=== PATIENT | male | born 1945 | race Caucasian/White ===

== ENCOUNTER 2021-09-20 11:19 | Inpatient (IN) | payer MEDICARE ==
[~2021-09-20] VITALS: Ht 195.6 cm; Wt 95.3 kg
[2021-09-20] MEDS ORDERED: ATOR40TA PO (11:38)
[2021-09-20] MEDS ORDERED: LOSA1TAB36 PO (11:38)
[2021-09-20] MEDS ORDERED: EZET10TA15 PO (11:38)
[2021-09-20] MEDS ORDERED: TAMS-3 PO (11:38)
[2021-09-20] MEDS ORDERED: FINA5TAB3 PO (11:38)
[2021-09-20] MEDS ORDERED: ATOR10TA PO (11:38)
[2021-09-20] MEDS ORDERED: BISACODYL 10 MG SUPP.RECT RC ONE ×2 (12:15→12:24)
[2021-09-20] MEDS ORDERED: LIDOCAINE 4% TOPICAL 50 ML BOTTLE TP ONE (12:15)
[2021-09-20] MEDS ORDERED: LIDOCAINE 4% TOPICAL 50 ML BOTTLE ONE (12:29)
[2021-09-20] MEDS ORDERED: IV NORMAL SALINE 500 ML BAG IV ONE (13:30)
[2021-09-20 13:37] LABS: HEMATOCRIT 36.5 % (36.7-47.1); MEAN CORPUSCULAR HEMOGLOBIN 30.7 uug (23.8-33.4); PLATELET COUNT (AUTO) 280 K/uL (152-348)
[2021-09-20] MEDS ORDERED: DALF10TA2 PO (13:38)
[2021-09-20 13:44] LABS: CREATININE 1.3 mg/dL (0.6-1.3)
[2021-09-20 13:50] LABS: BILIRUBIN,DIRECT 0.1 mg/dL (0.0-0.2); BILIRUBIN,TOTAL 0.9 mg/dL (0.2-1.0); TOTAL PROTEIN, SERUM 7.1 g/dL (6.4-8.2)
[2021-09-20] MEDS ORDERED: SWABABLE VALVE TRANSFER SET EA MC ONE (14:04)
[2021-09-20] MEDS ORDERED: IV NORMAL SALINE 250 ML IV ONE (14:05)
[2021-09-20] MEDS ORDERED: IOHEXOL 300MG/ML 100 ML INFUS..BTL ONE (14:05)
[2021-09-20] MEDS ORDERED: MINERAL OIL FLEET ENEMA 133 ML BOTTLE RC ONE ×4 (14:15→16:46)
[2021-09-20 16:28] LABS: *BILIRUBIN,URIN NEGATIVE (NEGATIVE); *BLOOD, URINE NEGATIVE (NEGATIVE); *CLARITY,URINE CLEAR (CLEAR); *COLOR,URINE YELLOW (YELLOW); *KETONES,URINE NEGATIVE (NEGATIVE); LEUKOCYTE ESTERASE ,URINE NEGATIVE (NEGATIVE); NITRITE, URINE NEGATIVE (NEGATIVE); UGLUCOSE NEGATIVE (NEGATIVE)
[2021-09-20] MEDS ORDERED: MAGNESIUM CITRATE 296 ML BOTTLE PO ONE (18:00)
[2021-09-20] MEDS ORDERED: MAGNESIUM CITRATE 296 ML BOTTLE ONE (18:34)
[2021-09-20] MEDS ORDERED: ONDANSETRON 4 MG/2 ML VIAL IV PRN (19:00)
[2021-09-20] MEDS ORDERED: ACETAMINOPHEN 325 MG TABLET PO PRN (19:00)
[2021-09-20] MEDS ORDERED: FLEET ENEMA 133 ML BOTTLE RC PRN (19:00)
[2021-09-20] MEDS ORDERED: MAGNESIUM HYDROXIDE 30 ML LIQUID UDC PO PRN (19:00)
[2021-09-20] MEDS ORDERED: Z GUARD REMEDY PASTE 57 GM TUBE TOP PRN (19:00)
[2021-09-20] MEDS ORDERED: LACTULOSE 20 G/30 ML LIQUID UDC PO PRN (19:00)
--- NOTE | 2021-09-20 19:25 | NUR ---
Report received from day shift nurse. Pt called to use bsc, while on commode pt became weak pt was assisted back to [facility] with two person assist.
[2021-09-20] MEDS ORDERED: ONDANSETRON HCL 4 MG TABLET ONE (20:03)
[2021-09-20] MEDS ORDERED: HYDROMORPHONE 2 MG/1 ML DISP.SYRIN ONE (20:03)
--- NOTE | 2021-09-20 20:07 | NUR ---
report called to Nighat BAH
--- NOTE | 2021-09-20 21:04 | NUR ---
[facility]. Nighat RN at bedside to receive pt.
--- NOTE | 2021-09-20 21:20 | NUR ---
ADMITTED THIS 75 Y.O. MALE FROM ER,VIA GURNEY,ACCOMPANIED BY ER NURSES.ALERT ,ORIENTED X4, WENT TO ER FOR CONSTIPATION, NO BM FOR 4 DAYS, HAD BOWEL WORK UP IN ER,PT. GOT UP AND WANTING TO USE BATHROOM AND HAD SYNCOPAL EPISODE AND BRADYCARDIA,THEN THAT IS THE REASON FOR ADMISSION.CAME TO THE FLOOR IN A VERY BAD MOOD.IV SITE ON RIGHT AC PATENT AND INTACT
--- NOTE | 2021-09-20 22:00 | NUR ---
PT WAS UNCOOPERATIVE, REQUESTING DIFFERENT STUFF SOON HE CAME FROM ER, DR.SANTA LOMAS NOTIFIED OF ADMISSION,RELAYED MESSAGES REGARDING WHAT MEDICATIONS PT WANTS. ACTIVE LISTENING PROVIDED,.
[2021-09-20] MEDS ORDERED: PANTOPRAZOLE SODIUM 40 MG TABLET.DR PO ONE (22:39)
[2021-09-20] MEDS: TAMSULOSIN HCL 0.4 MG CAP.SR.24H PO SCH (22:57)
[2021-09-20] MEDS: DOCUSATE SODIUM 100 MG CAPSULE PO SCH (23:04)
--- NOTE | 2021-09-20 23:50 | NUR ---
PTC/O NAUSEA,THEN REQUESTING ANTACID BEREKET,AFTEROBTAINING ORDERS FOR ANTACID ,WANTSMD BE PAGED AGAIN REGARDING USE OF CPAP MACHINE.THIS PT IS VERY STUBBORN AND NON COMPIAT.NURSE TOOK HIS HOME MEDS AD WILL BE GIVEN TO PHARMACY.REFUSED TO BE ASSESSED AT THIS TIME, ONLY INTERESTED TO HAVE A GOOD BM ,GET CLEANED AND SLEEP GOOD. ON TELE SR,68. SLEPT AT LONG INTERVALS.NO ACUTE DISTRESS NOTED.
[2021-09-21] VITALS: BP 123/40
--- NOTE | 2021-09-21 04:47 | NUR ---
PATIENT PLACED ON CPAP MACHINE WITH FULL MASK LARGE, WITH CPAP 5CM, HE SAID HE WEARS ONE AT HOME, PT STABLE ON 3L/M NC WHEN OFF CPAP; FIO2 @ 35% ON CPAP MACHINE .Luz Elena MILES RCP Addendum: 09/21/21 at 0449 by ROXANE MILES RT Amended: Links added.
[2021-09-21] MEDS: PANTOPRAZOLE SODIUM 40 MG TABLET.DR PO SCH ×4 (06:47→21:17)
[2021-09-21 06:53] LABS: HEMATOCRIT 33.1 % (36.7-47.1); MEAN CORPUSCULAR HEMOGLOBIN 30.8 uug (23.8-33.4); MEAN CORPUSCULAR VOLUME 88.2 fL (73.0-96.2); PLATELET COUNT (AUTO) 217 K/uL (152-348)
--- NOTE | 2021-09-21 07:30 | NUR ---
STILL SLEEPING.AM MED OFFERED BUT OPTED TO TAKE IT LATER. REPORT GIVEN TO AM NURSE. ENDORSED IN APPARENTLY FAIR CONDITION.
[2021-09-21 07:32] LABS: CREATININE 1.1 mg/dL (0.6-1.3); MAGNESIUM 3.2 mg/dL (1.8-2.4); PHOSPHOROUS 3.5 mg/dL (2.5-4.9); POTASSIUM 3.8 mmol/L (3.5-5.1)
[2021-09-21] MEDS: TAMSULOSIN HCL 0.4 MG CAP.SR.24H PO SCH (08:16)
--- NOTE | 2021-09-21 10:10 | NUR ---
ASSISTANT PROFESSOR OF ECONOMICS HERE TO DO ECHO ORDERED BUT PATIENT REFUSED AT THIS TIME.
[2021-09-21] MEDS ORDERED: ATOR80TA PO (10:34)
[2021-09-21] MEDS ORDERED: CLON1PAT TD (10:36)
[2021-09-21] MEDS ORDERED: LOSA1TAB39 PO (10:41)
[2021-09-21] MEDS ORDERED: DULA1.5P SQ (10:42)
[2021-09-21] MEDS ORDERED: SPIR25TA PO (10:43)
[2021-09-21] MEDS ORDERED: AMLO-212 PO (10:43)
[2021-09-21] MEDS ORDERED: ESOM40SU PO (10:46)
--- NOTE | 2021-09-21 11:06 | NUR ---
DR PRADO HERE AND AWARE THAT PATIENT IS HAS REFUSED ECHO AND PHYSICAL THERAPY ORDERED AND OTHOSTATIC BLOOD PRESSURE NOT DONE AND HE STATED OKAY WILL SEE PATIENT.
[2021-09-21 12:00] VITALS: BP 112/54
--- NOTE | 2021-09-21 13:04 | NUR ---
PATIENT SEEN AND EXAMINED BY DR LOMAS SHE IS AWARE THAT PATIENT REFUSED PHYSICAL THERAPY AND ECHO ORDERED SHE VERIFIED PATIENT HOME MEDICATIONS AND HIS HOME MEDS THAT WAS DROPPED OFF BY HIS 4 BOTTLES TAKEN FROM THE PATIENT AND SENT TO THE PHARMACY
[2021-09-21] MEDS ORDERED: DALFAMPRIDINE PO ×2 (14:15→14:16)
[2021-09-21 16:02] VITALS: BP 116/55
--- NOTE | 2021-09-21 16:30 | NUR ---
PER THE INTEGRATION SPECIALIST AUDIO VIDEO MECHANIC SOMEONE FROM [facility] WILL CALL RE TRANSFERRING PATIENT TO THAT HOSPITAL SOON SHE HAS AN ASSIGNED BED PATIENTS FABIOLA VICK IS AT THE BEDSIDE AND AWARE. Addendum: 09/21/21 at 1809 by CHERRI HATCH RN ERROR WRONG PATIENT
[2021-09-21] MEDS: DALFAMPRIDINE PO SCH ×2 (17:13→20:17)
--- NOTE | 2021-09-21 18:07 | NUR ---
NO CALLS FROM [facility] AT THIS TIME PER EDEN THE TILE MOLDER HAND THE AMBULANCE IS ON WILL CALL. Addendum: 09/21/21 at 1809 by CHERRI HATCH RN ERROR WRONG PATIENT
--- NOTE | 2021-09-21 18:09 | NUR ---
RESTING IN ROOM PHYSICAL THERAPY WAS FINALLY ABLE TO SEE HIM FOR EVAL WITH ORTHOSTATIC DONE ORDERED DOCUMENTED ON THE LONG FORM
[2021-09-21 18:10] VITALS: BP_SYST 106; BP_SYST 109; BP_SYST 115; BP_DIAS 40; BP_DIAS 45; BP_DIAS 46
[2021-09-21 20:00] VITALS: BP 102/49
[2021-09-21] MEDS: DOCUSATE SODIUM 100 MG CAPSULE PO SCH (20:16)
[2021-09-21] MEDS ORDERED: ATORVASTATIN 40 MG TABLET PO SCH (21:00)
[2021-09-21] MEDS ORDERED: Medication Not On Formulary EA (Atorvastatin Calcium (Lipitor) 80 MG) PO SCH (21:00)
--- NOTE | 2021-09-21 23:50 | NUR ---
Pt placed on CPAP 5, FIO2-30% at this time. RN DON aware and notified. No resp. distress noted. Pt to be monitored throughout the shift. PRN is at bedside. Alarms have been checked and remain audible.
[2021-09-22] VITALS: BP 111/45
[2021-09-22 04:00] VITALS: BP 116/56
[2021-09-22] MEDS ORDERED: PANTOPRAZOLE SODIUM 40 MG TABLET.DR PO SCH (07:00)
[2021-09-22 07:41] LABS: HEMATOCRIT 31.3 % (36.7-47.1); MEAN CORPUSCULAR HEMOGLOBIN 31.3 uug (23.8-33.4); MEAN CORPUSCULAR VOLUME 88.8 fL (73.0-96.2); PLATELET COUNT (AUTO) 189 K/uL (152-348)
--- NOTE | 2021-09-22 07:52 | NUR ---
Slept throughout the night with CPAP. Denies pain or SOB. Able to make needs known. IV site intact. Able to ambulate with FWW. No distress noted. Will endorse to day shift.
[2021-09-22 08:00] VITALS: BP 115/55
--- NOTE | 2021-09-22 08:00 | NUR ---
RECEIVED IN BED AWAKE ALERT AND ORIENTED DENIES PAIN OR DISCOMFORTS AT THIS TIME REMAIN ON TELE WITH NO ECTOPY CALL LIGHTS AND PERSONAL BELONGINGS ARE WITHIN EASY REACH AT THIS TIME WILL CONTINUE TO OBSERVE.
[2021-09-22 08:04] LABS: CREATININE 1.1 mg/dL (0.6-1.3); MAGNESIUM 2.4 mg/dL (1.8-2.4); PHOSPHOROUS 2.8 mg/dL (2.5-4.9); POTASSIUM 3.9 mmol/L (3.5-5.1)
[2021-09-22] MEDS: PANTOPRAZOLE SODIUM 40 MG TABLET.DR PO SCH (08:57)
[2021-09-22] MEDS ORDERED: EZETIMIBE 10 MG TABLET PO SCH (09:00)
[2021-09-22] MEDS ORDERED: AMLODIPINE 5 MG TABLET PO SCH (09:00)
[2021-09-22] MEDS ORDERED: TAMSULOSIN HCL 0.4 MG CAP.SR.24H PO SCH (09:00)
[2021-09-22] MEDS ORDERED: Medication Not On Formulary EA (Losartan/Hydrochlorothiazide (Losartan-Hctz 100-25 Mg Ta PO SCH (09:00)
[2021-09-22] MEDS ORDERED: HYDROCHLOROTHIAZIDE 25 MG TABLET PO SCH (09:00)
[2021-09-22] MEDS ORDERED: LOSARTAN POTASSIUM 50 MG TABLET PO SCH (09:00)
[2021-09-22] MEDS ORDERED: DALFAMPRIDINE PO SCH ×3 (09:00→12:16)
[2021-09-22] MEDS ORDERED: Medication Not On Formulary EA (Esomeprazole Mag Trihydrate (Nexium) 40 MG) PO SCH (09:00)
[2021-09-22] MEDS ORDERED: FINASTERIDE 5 MG TABLET PO SCH (09:00)
--- NOTE | 2021-09-22 11:30 | NUR ---
PATIENT SEEN BY DR PRADO AWARE THAT PATIENTS BLOOD PRESSURE MEDS WERE HELD THIS MORNING AND HE STATED OKAY WILL INSERT PARAMETERS.
[2021-09-22 12:00] VITALS: BP 118/59
[2021-09-22] MEDS: DALFAMPRIDINE PO SCH (12:01)
--- NOTE | 2021-09-22 15:30 | NUR ---
DR LOMAS HERE SEEN PATIENT WITH ORDER TO DISCHARGE HIM HOME TODAY PATIENT AWARE AND STATED THAT HIS CAR IS HERE AT [facility] AWAITING FOR DR LOMAS TO COMPLETE THE DISCHARGE PROCESS.
--- NOTE | 2021-09-22 16:00 | NUR ---
PATIENT DISCHARGED WITH DISCHARGE INSTRUCTIONS AND WAS INSTRUCTED TO FOLLOW UP WITH HIS PRIMARY DOCTOR TO RECHECK LABS/TSH AND TO OBSERVE PARAMETERS WITH HIS BLOOD PRESSURE MEDICATIONS INSTRUCTED BY THE ACTIVITIES COORDINATOR AND HE EXPRESSED UNDERSTANDING PATIENT ASSISTED ON THE W/CHAIR TO HIS CAR PARKED IN FRONT OF [facility] IN SATISFACTORY CONDITION WITH ALL HIS PERSONAL BELONGINGS INCLUDING HIS MEDICATIONS FROM THE [facility].
== END 2021-09-22 16:00 | disposition home or self-care (01) | DRG 392 ==
LOC: ER 11:19 → TELE3 20:11 → MEDSURG3 09-22 12:52
PROVIDERS: ADMIT Student in an Organized Health Care Education/Training Program; ATTEND Student in an Organized Health Care Education/Training Program
DX: K59.00 Constipation, unspecified (principal); E86.0 Dehydration; R55 Syncope and collapse; D72.829 Elevated white blood cell count, unspecified; E78.5 Hyperlipidemia, unspecified; G47.33 Obstructive sleep apnea (adult) (pediatric); I10 Essential (primary) hypertension; N19 Unspecified kidney failure; N40.0 Benign prostatic hyperplasia without lower urinary tract symptoms; Z82.49 Family history of ischemic heart disease and other diseases of the circulatory system; R27.0 Ataxia, unspecified; R94.6 Abnormal results of thyroid function studies; Z91.19 Patient's noncompliance with other medical treatment and regimen; Z20.822 Contact with and (suspected) exposure to COVID-19
CPT/HCPCS: 36415; 70030-TC; 71045; 83605; 83735; 84100; 84443; 85025; 93005; 94660; 97161; A4663; G0378; J1170; J2405; J7030; J7050; Q0162; Q9967

== ENCOUNTER 2022-10-19 01:09 | Emergency (ER) | payer MEDICARE, OTHER ==
[~2022-10-19] VITALS: Ht 165.1 cm; Wt 95.3 kg
[~2022-10-19 01:09] MED LIST: AMLO-212 PO; ATOR80TA PO; CLON1PAT TD; DALFAMPRIDINE PO; DULA1.5P SQ; ESOM40SU PO; EZET10TA15 PO; FINA5TAB3 PO; LOSA1TAB39 PO; SPIR25TA PO; TAMS-3 PO
[2022-10-19] MEDS ORDERED: SODIUM BICARBONATE 4.2 % (NEUT) 5 ML VIAL ONE (01:16)
[2022-10-19] MEDS ORDERED: LIDOCAINE 1%-EPI 1:100,000 20 ML VIAL ONE (01:17)
[2022-10-19] MEDS ORDERED: TDAP DIPH,PERTUSS,TET VAC/PF 0.5 ML DISP.SYRIN IM ONE ×2 (01:20→01:30)
--- NOTE | 2022-10-19 01:25 | NUR ---
PT A/O x 4. NAD noted.
[2022-10-19] MEDS ORDERED: SODIUM BICARBONATE 4.2 % (NEUT) 5 ML VIAL IJ ONE (01:30)
[2022-10-19] MEDS ORDERED: LIDOCAINE 1%-EPI 1:100,000 20 ML VIAL IJ ONE (01:30)
--- NOTE | 2022-10-19 01:30 | NUR ---
PT taken down for CT scan.
--- NOTE | 2022-10-19 01:40 | NUR ---
PT back from CT.
[2022-10-19] MEDS ORDERED: CEphaleXIN 500 MG CAPSULE ONE (02:26)
[2022-10-19] MEDS ORDERED: CEPH500T PO (02:29)
[2022-10-19] MEDS ORDERED: CEphaleXIN 500 MG CAPSULE PO ONE (02:30)
--- NOTE | 2022-10-19 03:05 | NUR ---
Patient discharged to home in stable condition. A/O x 4. NAD noted. All belongings with patient. Written and verbal after care instructions given. Patient verbalizes understanding of instructions. Stressed follow up or return to ER for worsening s/s.
[2022-10-19 04:12] VITALS: BP 150/81
== END 2022-10-19 03:05 | disposition home or self-care (01) ==
LOC: ER 01:09
DX: S01.01XA Laceration without foreign body of scalp, initial encounter (principal); S09.90XA Unspecified injury of head, initial encounter; W18.39XA Other fall on same level, initial encounter; Y92.89 Other specified places as the place of occurrence of the external cause; R27.0 Ataxia, unspecified; E78.00 Pure hypercholesterolemia, unspecified; N40.0 Benign prostatic hyperplasia without lower urinary tract symptoms; K21.9 Gastro-esophageal reflux disease without esophagitis; Z79.899 Other long term (current) drug therapy
CPT/HCPCS: 99284; 70450; 90715; 90471; 12002; J3490 ×2; A4663

== ENCOUNTER 2022-10-28 10:39 | Emergency (ER) | payer MEDICARE, OTHER ==
[~2022-10-28] VITALS: Ht 165.1 cm; Wt 90.7 kg
[~2022-10-28 10:39] MED LIST changes: +CEPH500T PO
--- NOTE | 2022-10-28 10:53 | NUR ---
patient was seen by Dr Ortiz. DC and follow up instructions given and explained to patient
== END 2022-10-28 11:00 | disposition home or self-care (01) ==
LOC: ER 10:39
DX: S01.01XD Laceration without foreign body of scalp, subsequent encounter (principal); W18.30XD Fall on same level, unspecified, subsequent encounter; R27.0 Ataxia, unspecified; E78.00 Pure hypercholesterolemia, unspecified; K21.9 Gastro-esophageal reflux disease without esophagitis; Z79.899 Other long term (current) drug therapy
CPT/HCPCS: A4663

== ENCOUNTER 2023-03-14 10:30 | Emergency (ER) | payer MEDICARE, BC, OTHER ==
[~2023-03-14] VITALS: Ht 165.1 cm; Wt 86.2 kg
[2023-03-14] MEDS ORDERED: GUAI5SYR4 GT (11:41)
[2023-03-14] MEDS ORDERED: AZIT250T PO (11:41)
--- NOTE | 2023-03-14 12:30 | NUR ---
PT WAS EVALUATED BY DR DIAZ. PT WAS D/C'd TO HOME. D/C INSTRUCTIONS GIVEN TO THE PT BY DR DIAZ.
[2023-03-14 12:33] VITALS: BP 136/88
== END 2023-03-14 12:33 | disposition home or self-care (01) ==
LOC: ER 10:30
DX: J18.9 Pneumonia, unspecified organism (principal); R07.89 Other chest pain; E78.5 Hyperlipidemia, unspecified; K21.9 Gastro-esophageal reflux disease without esophagitis; Z79.899 Other long term (current) drug therapy
CPT/HCPCS: 71045; A4663